=== PATIENT | female | born 1930 | race Caucasian/White ===

== ENCOUNTER 2017-05-06 07:40 | Inpatient (IN) | payer OTHER ==
[~2017-05-06] VITALS: Ht 165.1 cm; Wt 60.6 kg
[~2017-05-06 07:40] MED LIST: AMLODIPINE BESYL5 MG PO; BISACODYL SUPP10 MG PR; DEBROX15 ML BOTH EARS; DIGOXIN125 MCG PO; DULCOLAX10 MG PR; DUONEB 2.5-0.5 M3 ML IH; HEPARIN SO5000 UNITS SC; IPRATR-ALBUTEROL3 ML IH; LEVAQUIN500 MG PO; LEVETIRACE100 MG/1 M PO; LEVETIRACETAM500 MG PO; LEVOFLOXACIN250 MG PO; LEVOFLOXACIN500 MG PO; LISINOPRIL20 MG PO; LORAZEPAM0.5 MG PO; MELOXICAM7.5 MG PO; METOPROLOL TART50 MG PO; MILK OF MAGN PO; MILK OF MAGNESI10 ML PO; PANTOPRAZOLE SO40 MG PO; SENNA8.6 M1 PO; SENNA8.6 MG PO; TRAMADOL HCL50 MG PO; TYLENOL REGULA325 MG PO
[2017-05-06 08:19] LABS: BASOPHIL (%) 0.2 % (0-1); EOSINOPHIL (%) 0.6 % (0-5); HEMOGLOBIN 13.6 G/DL (11.9-15.5); IMMATURE GRANULOCYTE (%) 1.4 % (0.0-0.7); LYMPHOCYTE (%) 9.7 % (15-42); LYMPHOCYTE COUNT 0.5 K/uL (1.0-2.8); MCH 30.3 PG (29.0-34.0); MCV 89.1 FL (83-99); MONOCYTE (%) 19.4 % (3-12); NEUTROPHIL (%) 68.7 % (45-76); NEUTROPHIL COUNT 3.6 K/uL (1.8-6.4); PLATELET COUNT 101 K/uL (156-360); RBC DIS.WIDTH-CV 13.3 % (11.8-14.6); RBC DIS.WIDTH-SD 43.8 % (39-53); RED BLOOD COUNT 4.49 M/uL (3.80-5.20); WHITE BLOOD COUNT 5.2 K/uL (4.1-10.2)
[2017-05-06 08:27] LABS: ALBUMIN 3.4 g/dL (3.2-4.8); CHLORIDE 106 mEq/L (99-109); POTASSIUM 3.7 mEq/L (3.7-5.4); SODIUM 138 mEq/L (136-147)
[2017-05-06 08:29] LABS: GLUCOSE 129 mg/dL (70-99)
[2017-05-06 08:30] LABS: TOTAL PROTEIN 6.5 g/dL (6.4-8.3)
[2017-05-06 08:31] LABS: TOTAL BILIRUBIN 1.2 mg/dL (0.0-1.0)
[2017-05-06 08:33] LABS: ALKALINE PHOSPHATASE 48 IU/L (3-129); CREATININE 0.9 mg/dL (0.6-1.3); GFR ESTIMATE (CALCULATED) > 59 mL/min/
[2017-05-06 08:34] LABS: UREA NITROGEN (BUN) 16 mg/dL (9-23)
[2017-05-06 08:35] LABS: AST (GOT) 22 IU/L (2-34)
[2017-05-06 08:36] LABS: ALT (GPT) 17 IU/L (3-49)
[2017-05-06 08:39] LABS: TROP-I INTERPRETATION NEGATIVE; TROPONIN-I 0.02 ng/mL (0.0-0.30)
[2017-05-06 11:39] VITALS: BP 163/80
[2017-05-06 11:53] VITALS: BP 163/80
[2017-05-06] MEDS ORDERED: METOPROLOL SUCC50 MG PO (14:13)
[2017-05-06] MEDS ORDERED: MYRBETRIQ50 MG PO (14:14)
[2017-05-06] MEDS ORDERED: HARVONI 90-4001 EACH PO (14:17)
[2017-05-06] MEDS ORDERED: TIMOPTIC-0100 DROP/1 BOTH EYES (14:24)
[2017-05-06 15:50] VITALS: BP 154/89
[2017-05-06 18:31] VITALS: BP 169/90
[2017-05-06 19:58] LABS: TROP-I INTERPRETATION NEGATIVE; TROPONIN-I 0.03 ng/mL (0.0-0.30)
[2017-05-06 20:00] VITALS: BP 161/89
[2017-05-06 20:15] VITALS: BP 161/89
[2017-05-06 20:55] LABS: TROP-I INTERPRETATION NEGATIVE; TROPONIN-I 0.02 ng/mL (0.0-0.30)
[2017-05-07] VITALS (8 sets, daily range): BP systolic 146–168; BP diastolic 83–100
[2017-05-07 07:12] LABS: CHLORIDE 101 MEQ/L (99-109); CREATININE 0.7 MG/DL (0.6-1.3); GFR ESTIMATE (CALCULATED) > 59 mL/min/; GLUCOSE 110 mg/dL (70-99); POTASSIUM 3.7 MEQ/L (3.7-5.4); SODIUM 137 MEQ/L (136-147); UREA NITROGEN (BUN) 13 mg/dL (9-23)
[2017-05-07 09:28] LABS: HEMATOCRIT 40.8 % (36.0-46.0); MCH 30.4 PG (29.0-34.0); MCHC 34.3 G/DL (30.0-36.0); MCV 88.7 FL (83-99); PLATELET COUNT 92 K/uL (156-360); RBC DIS.WIDTH-CV 13.8 % (11.8-14.6); RBC DIS.WIDTH-SD 44.9 % (39-53); WHITE BLOOD COUNT 3.9 K/uL (4.1-10.2)
[2017-05-07 09:54] LABS: ALBUMIN 3.7 G/DL (3.2-4.8); ALKALINE PHOSPHATASE 39 IU/L (3-129); ALT (GPT) 16 IU/L (3-49); AST (GOT) 29 IU/L (2-34); CHLORIDE 99 MEQ/L (99-109); CREATININE 0.7 MG/DL (0.6-1.3); GFR ESTIMATE (CALCULATED) > 59 mL/min/; GLUCOSE 116 mg/dL (70-99); POTASSIUM 3.5 MEQ/L (3.7-5.4); SODIUM 133 MEQ/L (136-147); TOTAL BILIRUBIN 1.3 MG/DL (0.0-1.0); TOTAL PROTEIN 6.7 G/DL (6.4-8.3); UREA NITROGEN (BUN) 12 mg/dL (9-23)
[2017-05-07 10:03] LABS: ABS NEUTROPHIL COUNT 2.9; ANISOCYTOSIS 1+; BAND NEUTROPHILS 6.9 % (0-8.0); BASOPHILS 0.9 %; EOSINOPHIL ABS CT 0; LYMPHOCYTES 4.3 % (15.0-45.0); METAMYELOCYTES 0.9 %; MONOCYTES 12.2 % (0-9.0); PLAT.SUFFICIENCY DECREASED; SEG.NEUTROPHILS 67.8 % (46.0-76.0)
[2017-05-07 11:45] LABS: APPEARANCE CLEAR ((CLEAR)); BILIRUBIN NEGATIVE; BLOOD NEGATIVE; COLOR STRAW ((YELLOW)); GLUCOSE (STRIP) NEGATIVE; KETONES NEGATIVE; LEUKOCYTES NEGATIVE; NITRITE NEGATIVE; PROTEIN (STRIP) NEGATIVE; SPECIFIC GRAVITY 1.006 (1.000-1.030); UCUL ADDED? NO; UROBILINOGEN 0.2 MG/DL (0.2-1.0)
[2017-05-08 00:08] VITALS: BP 165/80
[2017-05-08 04:19] VITALS: BP 174/63
[2017-05-08 07:21] VITALS: BP 135/91
[2017-05-08] MEDS ORDERED: METOPROLOL SUCC25 MG PO (07:44)
[2017-05-08] MEDS ORDERED: METOPROLOL SUCC50 MG PO (07:44)
[2017-05-08] MEDS ORDERED: APRESOLINE50 MG PO (07:44)
[2017-05-08] MEDS ORDERED: ASPIR-LOW81 MG PO (07:44)
== END 2017-05-08 10:05 | disposition home or self-care (01) | DRG 202 ==
LOC: EME 07:40 → EDOF 10:38 → ENRESERV 10:39 → 5EAST 11:20 → ENPENDDIS 05-08 → 5EAST 05-08 10:05
PROVIDERS: Emergency Medicine; Internal Medicine; Physician Assistant
DX: J20.9 Acute bronchitis, unspecified (principal); I48.2 Chronic atrial fibrillation; I44.7 Left bundle-branch block, unspecified; I50.9 Heart failure, unspecified; B19.20 Unspecified viral hepatitis C without hepatic coma; D65 Disseminated intravascular coagulation [defibrination syndrome]; I11.0 Hypertensive heart disease with heart failure; E87.6 Hypokalemia; E78.5 Hyperlipidemia, unspecified; Z87.891 Personal history of nicotine dependence; Z86.73 Personal history of transient ischemic attack (TIA), and cerebral infarction without residual deficits; Z79.01 Long term (current) use of anticoagulants
CPT/HCPCS: 71020; 80048; 80053; 81003; 83605; 83880; 84484; 85025; 87040; 87070; 87205; 90686; 93005; 94640; 99281; 99285; J1650; J1940; J2270